=== PATIENT | female | born 1980 | race Caucasian/White ===

== ENCOUNTER 2017-07-08 13:56 | Emergency (ER) | payer OTHER ==
[~2017-07-08] VITALS: Ht 160 cm; Wt 158.8 kg
[2017-07-08 14:08] VITALS: BP 170/101
--- NOTE | 2017-07-08 14:13 | NUR ---
Patient ambulated to bed 02.
--- NOTE | 2017-07-08 14:20 | NUR ---
LAB at bedside.
[2017-07-08 14:40] LABS: BASOPHILS # (AUTO) 0.3 K/uL (0.00-0.22); EOSINOPHILS # (AUTO) 0.2 K/uL (0-0.4); HEMATOCRIT 34.1 % (36-48); HEMOGLOBIN 11.3 g/dL (12.0-16.0); LYMPHOCYTES # (AUTO) 3.6 K/uL (2.5-16.5); MEAN CORPUSCULAR HEMOGLOBIN 30 pg (27-31); MEAN CORPUSCULAR HGB CONC 33 g/dL (33-37); MEAN CORPUSCULAR VOLUME 89 fL (80-94); MONOCYTES # (AUTO) 0.9 K/uL (0.8-1.0); NEUTROPHILS # (AUTO) 8.1 K/uL (1.8-7.7); PLATELET COUNT (AUTO) 424 K/uL (140-450); RED BLOOD CELL COUNT(AUTO) 3.83 MIL/uL (4.20-5.40); RED CELL DISTRIBUTION WIDTH 13.1 % (11.6-13.7); WHITE BLOOD COUNT (AUTO) 13.1 K/uL (4.8-10.8)
[2017-07-08 14:48] LABS: ANION GAP 8.6 (8-16); CARBON DIOXIDE 30.1 mmol/L (21-32); CREATININE 0.7 mg/dL (0.6-1.3); POTASSIUM 3.7 mmol/L (3.5-5.1)
[2017-07-08] MEDS ORDERED: KETOROLAC 30 MG/ML VIAL IVP ONE (14:50)
--- NOTE | 2017-07-08 14:50 | NUR ---
US NOTIFIED. PT READY FOR PROCEDURE.
[2017-07-08 15:00] LABS: ALBUMIN 3.1 g/dL (3.4-5.0); TOTAL BILIRUBIN 0.3 mg/dL (0.0-1.0)
--- NOTE | 2017-07-08 15:14 | NUR ---
US NOTIFIED AGAIN, STS IT WILL BE ANOTHER 10MINS.
--- NOTE | 2017-07-08 15:24 | NUR ---
Patient taken to US via wheelchair per tech.
--- NOTE | 2017-07-08 15:47 | NUR ---
Patient back from US via wheelchair.
--- NOTE | 2017-07-08 16:31 | NUR ---
Dr. Taveras evaluating patient at bedside.
--- NOTE | 2017-07-08 16:49 | NUR ---
ORANGE SURVEY GIVEN TO PT.
[2017-07-08 16:58] VITALS: BP 101/50
--- NOTE | 2017-07-08 16:59 | NUR ---
Patient discharged with v/s stable. Written and verbal after care instructions given and explained. Patient alert, oriented and verbalized understanding of instructions. Ambulatory with steady gait. All questions addressed prior to discharge. ID band removed. Patient advised to follow up with PMD. Rx of NORCO 5-325 given. Patient educated on indication of medication including possible reaction and side effects. Opportunity to ask questions provided and answered.
== END 2017-07-08 16:58 | disposition home or self-care (01) ==
LOC: MED 13:56
DX: R10.30 Lower abdominal pain, unspecified (principal)
CPT/HCPCS: 36415; 76830; 80053; 81002; 81025; 83690; 85025; 96374; 99285; J1885

== ENCOUNTER 2017-07-09 16:49 | Emergency (ER) | payer OTHER ==
[~2017-07-09] VITALS: Ht 162.6 cm; Wt 158.8 kg
[2017-07-09 17:08] VITALS: BP 148/87
--- NOTE | 2017-07-09 17:10 | NUR ---
PATIENT PRESENTS TO ED WITH C/O VAGINAL BLEEDING AND CRAMPS . PT STATES SHE WAS SEEN BY HER DOCTOR TODAY AND WAS REFFERED TO HAVE A D&C . PATIENT STATES SHE HAS BEEN BLEEDING FOR 2 MONTHS BUT LATELY SHE HAS BEEN PASSING CLOTS. DENIES N/V/D; SKIN IS PINK/WARM/DRY; AAOX4 WITH EVEN AND STEADY GAIT; LUNGS CLEAR BL; HR EVEN AND REGULAR; PT DENIES ANY FEVER, CP, SOB, OR COUGH AT THIS TIME; PATIENT STATES PAIN OF 10/10 AT THIS TIME; VSS; PATIENT POSITIONED FOR COMFORT; HOB ELEVATED; BEDRAILS UP X2; BED DOWN. ER MD MADE AWARE OF PT STATUS.
--- NOTE | 2017-07-09 17:10 | NUR ---
Patient ambulated to bed 12.
[2017-07-09] MEDS ORDERED: NACL 0.9% 1,000 ML IV ONE (18:03)
[2017-07-09] MEDS ORDERED: MORPHINE SULFATE 4 MG/ML SYR IVP ONE (18:05)
[2017-07-09] MEDS ORDERED: ONDANSETRON 4 MG/2 ML VIAL IVP ONE (18:05)
[2017-07-09 18:35] LABS: BASOPHILS # (AUTO) 0.3 K/uL (0.00-0.22); BASOPHILS % (AUTO) 1.9 % (0.0-2.0); EOSINOPHILS # (AUTO) 0.1 K/uL (0-0.4); EOSINOPHILS % (AUTO) 0.9 % (0.0-4.0); HEMATOCRIT 34.5 % (36-48); HEMOGLOBIN 11.4 g/dL (12.0-16.0); LYMPHOCYTES # (AUTO) 3.6 K/uL (2.5-16.5); LYMPHOCYTES % (AUTO) 23.8 % (20.5-51.1); MEAN CORPUSCULAR HEMOGLOBIN 29 pg (27-31); MEAN CORPUSCULAR HGB CONC 33 g/dL (33-37); MEAN CORPUSCULAR VOLUME 89 fL (80-94); MONOCYTES # (AUTO) 0.6 K/uL (0.8-1.0); MONOCYTES % (AUTO) 4.2 % (1.7-9.3); NEUTROPHILS # (AUTO) 10.7 K/uL (1.8-7.7); NEUTROPHILS % (AUTO) 69.2 % (42.2-75.2); PLATELET COUNT (AUTO) 399 K/uL (140-450); RED CELL DISTRIBUTION WIDTH 13.3 % (11.6-13.7); WHITE BLOOD COUNT (AUTO) 15.3 K/uL (4.8-10.8)
[2017-07-09 18:39] LABS: APPEARANCE,URINE TURBID (CLEAR); BILIRUBIN,URINE NEGATIVE (NEGATIVE); BLOOD, URINE 3+ (NEGATIVE); COLOR,URINE YELLOW (YELLOW); LEUKOCYTE ESTERASE ,URINE TRACE (NEGATIVE); NITRITE, URINE NEGATIVE (NEGATIVE); UGLUCOSE NEGATIVE (NEGATIVE)
[2017-07-09 18:57] LABS: RBC,URINE TOO NUMEROUS TO COUN /HPF (0-5)
[2017-07-09 19:00] LABS: ALBUMIN 3.3 g/dL (3.4-5.0); ANION GAP 7.9 (8-16); CARBON DIOXIDE 28.8 mmol/L (21-32); CREATININE 0.7 mg/dL (0.6-1.3); POTASSIUM 3.7 mmol/L (3.5-5.1); TOTAL BILIRUBIN 0.2 mg/dL (0.0-1.0)
--- NOTE | 2017-07-09 19:20 | NUR ---
GOT REPORT FROM ESME YOO. PT. RESTING IN BED, NO S/SX OF DISTRESS AT THIS TIME
--- NOTE | 2017-07-09 19:24 | NUR ---
Dr. Donahue evaluating patient at bedside.
--- NOTE | 2017-07-09 19:55 | NUR ---
Patient discharged with v/s stable. Written and verbal after care instructions given and explained. Patient alert, oriented and verbalized understanding of instructions. Ambulatory with steady gait. All questions addressed prior to discharge. ID band removed. Patient advised to follow up with PMD. Rx of PERCOCET 5MG/325MG Q4PRN given. Patient educated on indication of medication including possible reaction and side effects. Opportunity to ask questions provided and answered.
[2017-07-09 20:01] VITALS: BP 144/81
== END 2017-07-09 19:55 | disposition home or self-care (01) ==
LOC: MED 16:49
DX: N93.8 Other specified abnormal uterine and vaginal bleeding (principal); R03.0 Elevated blood-pressure reading, without diagnosis of hypertension
CPT/HCPCS: 36415; 74176; 80053; 81001; 81025; 83690; 85025; 87086; 96361; 96374; 96375; 99285; J2270; J2405; J7030

== ENCOUNTER 2017-09-15 05:57 | Day surgery (SDC) | payer OTHER ==
[~2017-09-15] VITALS: Ht 160 cm; Wt 157.4 kg
[2017-09-15] MEDS ORDERED: SYN.05 PO (07:07)
[2017-09-15] MEDS ORDERED: KETOROLAC 30 MG/ML VIAL ONE (07:31)
[2017-09-15] MEDS ORDERED: DEXAMETHASONE 4 MG/ML VIAL ONE (07:31)
[2017-09-15] MEDS ORDERED: SEVOFLURANE 250 ML BTL INH ONE (07:31)
[2017-09-15] MEDS ORDERED: ONDANSETRON 4 MG/2 ML VIAL ONE (07:31)
[2017-09-15] MEDS ORDERED: PROPOFOL 200 MG/20 ML VIAL IV ONE (07:31)
[2017-09-15] MEDS ORDERED: fentaNYL 0.05 MG/ML VIAL ONE (07:34)
[2017-09-15] MEDS ORDERED: IBUPROFEN 800 MG TAB PO PRN (07:45)
[2017-09-15] MEDS ORDERED: ACETAMINOPHEN/CODEINE 300/30MG 1 TAB PO PRN (07:45)
[2017-09-15] MEDS ORDERED: ONDANSETRON 4 MG/2 ML VIAL IVP PRN (07:45)
[2017-09-15] MEDS ORDERED: MORPHINE SULFATE 4 MG/ML SYR IM/IVP PRN (07:45)
== END 2017-09-15 09:10 | disposition home or self-care (01) ==
LOC: MDS 05:57 → MMU 05:58 → MDS 09:10
PROVIDERS: ATTEND Obstetrics & Gynecology
DX: N92.1 Excessive and frequent menstruation with irregular cycle (principal); E03.9 Hypothyroidism, unspecified
CPT/HCPCS: 58120; J7120; J1100; J1885; J2405; J2704; J3010

== ENCOUNTER 2018-06-09 12:23 | Emergency (ER) | payer OTHER ==
[~2018-06-09] VITALS: Ht 160 cm; Wt 158.3 kg
[~2018-06-09 12:23] MED LIST: SYN.05 PO
[2018-06-09 12:31] VITALS: BP 163/93
--- NOTE | 2018-06-09 12:35 | NUR ---
PT AMBULATES TO BED 11
--- NOTE | 2018-06-09 12:45 | NUR ---
PT with c/o intermittent vaginal bleeding (ongoing since Apr) with clots with pelvic pain. Patient denies any vaginal discharge, recent fevers, or n/v/d. VSS; PATIENT POSITIONED FOR COMFORT; HOB ELEVATED; BEDRAILS UP X1; BED DOWN. ER MD MADE AWARE OF PT STATUS.
--- NOTE | 2018-06-09 14:30 | NUR ---
Patient appears to be resting comfortably in bed. Vital Signs within normal limits. Respirations even and unlabored.
[2018-06-09 14:40] LABS: BASOPHILS # (AUTO) 0.2 K/uL (0.00-0.22); BASOPHILS % (AUTO) 1.2 % (0.0-2.0); EOSINOPHILS # (AUTO) 0.2 K/uL (0-0.4); EOSINOPHILS % (AUTO) 1.3 % (0.0-4.0); HEMATOCRIT 31.7 % (36-48); HEMOGLOBIN 9.9 g/dL (12.0-16.0); LYMPHOCYTES # (AUTO) 3.5 K/uL (2.5-16.5); LYMPHOCYTES % (AUTO) 25.7 % (20.5-51.1); MEAN CORPUSCULAR HEMOGLOBIN 26 pg (27-31); MEAN CORPUSCULAR HGB CONC 31 g/dL (33-37); MEAN CORPUSCULAR VOLUME 82.8 fL (80-94); MONOCYTES % (AUTO) 7.1 % (1.7-9.3); NEUTROPHILS # (AUTO) 8.7 K/uL (1.8-7.7); NEUTROPHILS % (AUTO) 64.7 % (42.2-75.2); PLATELET COUNT (AUTO) 417 K/uL (140-450); RED BLOOD CELL COUNT(AUTO) 3.83 MIL/uL (4.20-5.40); RED CELL DISTRIBUTION WIDTH 16.3 % (11.6-13.7); WHITE BLOOD COUNT (AUTO) 13.4 K/uL (4.8-10.8)
[2018-06-09 16:52] VITALS: BP 163/93
== END 2018-06-09 16:54 | disposition home or self-care (01) ==
LOC: MED 12:23
DX: N93.8 Other specified abnormal uterine and vaginal bleeding (principal); Z79.899 Other long term (current) drug therapy
CPT/HCPCS: 36415; 76856; 81002; 81025; 85025; 99285; Q0092

== ENCOUNTER 2018-06-12 14:41 | Emergency (ER) | payer OTHER ==
[~2018-06-12] VITALS: Ht 162.6 cm; Wt 158.3 kg
[2018-06-12 15:06] VITALS: BP 110/59
[2018-06-12 19:33] LABS: BASOPHILS # (AUTO) 0.1 K/uL (0.00-0.22); BASOPHILS % (AUTO) 0.8 % (0.0-2.0); EOSINOPHILS # (AUTO) 0.2 K/uL (0-0.4); EOSINOPHILS % (AUTO) 1.1 % (0.0-4.0); HEMATOCRIT 32.4 % (36-48); HEMOGLOBIN 10.2 g/dL (12.0-16.0); LYMPHOCYTES # (AUTO) 3.2 K/uL (2.5-16.5); LYMPHOCYTES % (AUTO) 18.5 % (20.5-51.1); MEAN CORPUSCULAR HEMOGLOBIN 26 pg (27-31); MEAN CORPUSCULAR HGB CONC 31 g/dL (33-37); MEAN CORPUSCULAR VOLUME 82.6 fL (80-94); MONOCYTES % (AUTO) 5.5 % (1.7-9.3); NEUTROPHILS # (AUTO) 12.9 K/uL (1.8-7.7); NEUTROPHILS % (AUTO) 74.1 % (42.2-75.2); PLATELET COUNT (AUTO) 489 K/uL (140-450); RED BLOOD CELL COUNT(AUTO) 3.93 MIL/uL (4.20-5.40); RED CELL DISTRIBUTION WIDTH 15.8 % (11.6-13.7); WHITE BLOOD COUNT (AUTO) 17.4 K/uL (4.8-10.8)
[2018-06-12 19:42] LABS: ANION GAP 11.8 (8-16); CARBON DIOXIDE 28.8 mmol/L (21-32); CREATININE 0.7 mg/dL (0.6-1.3); POTASSIUM 3.6 mmol/L (3.5-5.1)
[2018-06-12 19:48] LABS: ALBUMIN 3.2 g/dL (3.4-5.0); TOTAL BILIRUBIN 0.1 mg/dL (0.0-1.0)
[2018-06-12] MEDS: NACL 0.9% 1,000 ML IV SCH (20:14)
[2018-06-12] MEDS: KETOROLAC 30 MG/ML VIAL IVP ONE (20:18)
[2018-06-12] MEDS: MORPHINE SULFATE 4 MG/ML SYR IVP ONE (20:20)
[2018-06-12] MEDS: ONDANSETRON 4 MG/2 ML VIAL IVP ONE (20:21)
[2018-06-12 22:01] LABS: APPEARANCE,URINE CLEAR (CLEAR); BILIRUBIN,URINE NEGATIVE (NEGATIVE); BLOOD, URINE TRACE (NEGATIVE); COLOR,URINE YELLOW (YELLOW); LEUKOCYTE ESTERASE ,URINE NEGATIVE (NEGATIVE); NITRITE, URINE NEGATIVE (NEGATIVE); UGLUCOSE NEGATIVE (NEGATIVE)
[2018-06-12 22:07] LABS: RBC,URINE 3-10 (FEW) /HPF (0-5); WBC,URINE 0-5 (RARE) /HPF (0-5)
[2018-06-13 00:20] VITALS: BP 141/85
== END 2018-06-13 00:20 | disposition home or self-care (01) ==
LOC: MED 14:41
DX: D25.9 Leiomyoma of uterus, unspecified (principal); Z79.899 Other long term (current) drug therapy
CPT/HCPCS: 36415; 74177; 80053; 81001; 82150; 83690; 84703; 85025; 96374; 96375; 99285; C1758; J1885; J2270; J2405; J7030; Q9967

== ENCOUNTER 2019-03-26 13:13 | Emergency (ER) | payer MEDICAID, OTHER ==
[~2019-03-26] VITALS: Ht 170.2 cm; Wt 145.1 kg
--- NOTE | 2019-03-26 13:27 | NUR ---
Note undone in EDM - 03/26/19 at 1348 by MED BIB FRIEND. AAO X4 C/O SUDDEN ONSET OF EPIGASTRIC ANGE PAIN, NON RADIATING WITH NAUSEA, SOB X 20 MINS AGO. PT DENIES FEVER, VOMITING, DIARRHEA, ACID REFLUX. LAST FOOD TAKEN THIS MORNING. ER TO EVALUATE PT.
--- NOTE | 2019-03-26 13:27 | NUR ---
BIB COUSIN. AAO X4 C/O SUDDEN ONSET OF EPIGASTRIC ANGE PAIN, NON RADIATING WITH NAUSEA, SOB X 20 MINS AGO. PT DENIES FEVER, VOMITING, DIARRHEA, ACID REFLUX. LAST FOOD TAKEN THIS MORNING. ER TO EVALUATE PT.
--- NOTE | 2019-03-26 13:27 | NUR ---
PT AMBULATED TO BED 03.
[2019-03-26 13:30] VITALS: BP 143/91
--- NOTE | 2019-03-26 14:14 | NUR ---
DR DUNNE AT BEDSIDE FOR PT EVALUATION
[2019-03-26] MEDS ORDERED: ONDANSETRON 4 MG ODT PO ONE (14:15)
[2019-03-26] MEDS ORDERED: KETOROLAC 60 MG/2 ML VIAL IM ONE (14:15)
[2019-03-26] MEDS ORDERED: FAMOTIDINE 20 MG TAB PO ONE (14:15)
--- NOTE | 2019-03-26 14:40 | NUR ---
PT LAYING DOWN. AAO X4. EVEN AND UNLABORED BREATHING. NO SIGNS AND SYMPTOMS OF DISTRESS NOTED.
[2019-03-26 14:42] LABS: BASOPHILS # (AUTO) 0.1 K/uL (0.00-0.22); BASOPHILS % (AUTO) 0.6 % (0.0-2.0); EOSINOPHILS # (AUTO) 0.1 K/uL (0-0.4); HEMATOCRIT 33.1 % (36-48); HEMOGLOBIN 10.4 g/dL (12.0-16.0); LYMPHOCYTES # (AUTO) 2.2 K/uL (2.5-16.5); LYMPHOCYTES % (AUTO) 21.6 % (20.5-51.1); MEAN CORPUSCULAR HEMOGLOBIN 24 pg (27-31); MEAN CORPUSCULAR HGB CONC 32 g/dL (33-37); MEAN CORPUSCULAR VOLUME 75.3 fL (80-94); MONOCYTES # (AUTO) 0.6 K/uL (0.8-1.0); MONOCYTES % (AUTO) 6.2 % (1.7-9.3); NEUTROPHILS # (AUTO) 7.1 K/uL (1.8-7.7); NEUTROPHILS % (AUTO) 70.6 % (42.2-75.2); PLATELET COUNT (AUTO) 429 K/uL (140-450); RED BLOOD CELL COUNT(AUTO) 4.39 MIL/uL (4.20-5.40); RED CELL DISTRIBUTION WIDTH 20.2 % (11.6-13.7)
[2019-03-26 15:06] LABS: ANION GAP 11.5 (8-16); CARBON DIOXIDE 30.4 mmol/L (21-32); CREATININE 0.8 mg/dL (0.6-1.3); POTASSIUM 3.9 mmol/L (3.5-5.1); TOTAL BILIRUBIN 0.3 mg/dL (0.0-1.0)
--- NOTE | 2019-03-26 16:00 | NUR ---
DR DUNNE AT BEDSIDE FOR PT RE EVALUATION
--- NOTE | 2019-03-26 16:02 | NUR ---
PT SITTING UP. AAO X4. PT DENIES ANY PAIN. EVEN AND UNLABORED BREATHING NOTED. WILL CONTINUE TO MONITOR.
[2019-03-26 16:15] VITALS: BP 138/78
--- NOTE | 2019-03-26 16:15 | NUR ---
Patient discharged with v/s stable. Written and verbal after care instructions given and explained. Patient alert, oriented and verbalized understanding of instructions. Ambulatory with steady gait. All questions addressed prior to discharge. ID band removed. Patient advised to follow up with PMD. Rx of ZOFRAN ODT, PEPCID, NORCO 5MG-325 MG given. Patient educated on indication of medication including possible reaction and side effects. Opportunity to ask questions provided and answered.
== END 2019-03-26 16:15 | disposition home or self-care (01) ==
LOC: MED 13:13
DX: K80.20 Calculus of gallbladder without cholecystitis without obstruction (principal); Z79.899 Other long term (current) drug therapy; Z86.39 Personal history of other endocrine, nutritional and metabolic disease
CPT/HCPCS: 36415; 80053; 81002; 81025; 83690; 85025; 96372; 99283; J1885; Q0162

== ENCOUNTER 2019-07-04 20:39 | Emergency (ER) | payer MEDICAID ==
[~2019-07-04] VITALS: Ht 162.6 cm; Wt 95.3 kg
[2019-07-04 20:49] VITALS: BP 120/89
--- NOTE | 2019-07-04 21:01 | NUR ---
38 Y/O F PRESENTS TO THE ED W/C/O L SIDED FACIAL PAIN AND L SIDED ARM PAIN SINCE WEDNESDAY. PT WAS RECENTLY PERSCRIBED LISINPOPRIL ON WEDNESDAY AND HAS TAKEN IT TWICE. +FACIAL SYMMETRY NOTED. PT DENIES CHEST PAIN. PT DENIES SOB. +EQULA HR RECRUITER STRENGHT. +CMS. GCS 15. PT DENIES N/V/D; SKIN IS INTACT, PINK/WARM/DRY; BREATHING UNLABORED; HR EVEN AND REGULAR, BL PERIPHERAL PULSES PRESENT; PT STATES 8/10 PAIN AT THIS TIME IN LEFT ARM; VSS; PATIENT POSITIONED FOR COMFORT; HOB ELEVATED; BEDRAILS UP X2; BED DOWN.
[2019-07-04 21:38] VITALS: BP 120/89
--- NOTE | 2019-07-04 21:38 | NUR ---
Patient discharged with v/s stable. Written and verbal after care instructions given and explained. Patient alert, oriented and verbalized understanding of instructions. Ambulatory with steady gait. All questions addressed prior to discharge. ID band removed. Patient advised to follow up with PMD. Rx of IBURPROFEN given. Patient educated on indication of medication including possible reaction and side effects. Opportunity to ask questions provided and answered.
== END 2019-07-04 21:38 | disposition home or self-care (01) ==
LOC: MED 20:39
DX: M79.602 Pain in left arm (principal); E03.9 Hypothyroidism, unspecified; Z79.899 Other long term (current) drug therapy
CPT/HCPCS: 99282

== ENCOUNTER 2019-09-19 16:54 | Emergency (ER) | payer MEDICAID, OTHER ==
[~2019-09-19] VITALS: Ht 162.6 cm; Wt 165.1 kg
[2019-09-19 17:08] VITALS: BP 159/86
--- NOTE | 2019-09-19 17:31 | NUR ---
C/O LEFT FLANK PAIN X YESTERDAY---DENIES INJURY
[2019-09-19 18:35] VITALS: BP 154/88
--- NOTE | 2019-09-19 18:36 | NUR ---
Patient discharged with v/s stable. Written and verbal after care instructions given and explained. Patient alert, oriented and verbalized understanding of instructions. Ambulatory with steady gait. All questions addressed prior to discharge. ID band removed. Patient advised to follow up with PMD. Rx of NAPROSYN, PROMETHAZINE given. Patient educated on indication of medication including possible reaction and side effects. Opportunity to ask questions provided and answered.
== END 2019-09-19 18:36 | disposition home or self-care (01) ==
LOC: MED 16:54
DX: S39.012A Strain of muscle, fascia and tendon of lower back, initial encounter (principal); J06.9 Acute upper respiratory infection, unspecified; E07.9 Disorder of thyroid, unspecified; Z79.899 Other long term (current) drug therapy; X58.XXXA Exposure to other specified factors, initial encounter; Y93.89 Activity, other specified; Y92.89 Other specified places as the place of occurrence of the external cause; Y99.8 Other external cause status
CPT/HCPCS: 81002; 81025; 99283

== ENCOUNTER 2020-05-15 03:54 | Emergency (ER) | payer OTHER ==
[~2020-05-15] VITALS: Ht 162.6 cm; Wt 160.1 kg
[2020-05-15 04:00] VITALS: BP 160/80
--- NOTE | 2020-05-15 04:06 | NUR ---
AMBULATED TO ER BED 4
--- NOTE | 2020-05-15 04:15 | NUR ---
PT STATES SHE WOKE UP THIS MORNING WITH C/O SEVERE PAIN TO RIGHT SIDE, ACHING TYPE PAIN 05/18. DENIES N/V/D. PT HAS HX OF GALLSTONES. AFEBRILE. NO PAIN WITH URINATION. AREA TENDER UPON PALPATION. LAST BM YESTERDAY, NORAML SOFT STOOL. PT SITTING IN CHAIR NEXT TO BED, STATES TOO PAINFUL TO LAY DOWN. NKA HX - DM, GALLSTONES
--- NOTE | 2020-05-15 04:19 | NUR ---
PT AMBULATED TO RESTROOM TO PROVIDE UA
[2020-05-15] MEDS: NACL 0.9% 1,000 ML IV ONE (04:32)
[2020-05-15] MEDS: MORPHINE SULFATE 4 MG/ML SYR IVP ONE ×2 (04:33→05:26)
[2020-05-15] MEDS: ONDANSETRON 4 MG/2 ML VIAL IVP ONE (04:33)
--- NOTE | 2020-05-15 04:43 | NUR ---
LABS AND URINE COLLECTED AND TAKEN TO LAB.
--- NOTE | 2020-05-15 04:44 | NUR ---
ULTRASOUND AT BEDSIDE
[2020-05-15 04:53] LABS: BASOPHILS # (AUTO) 0.1 K/uL (0.00-0.22); BASOPHILS % (AUTO) 0.9 % (0.0-2.0); HEMOGLOBIN 7.5 g/dL (12.0-16.0); MEAN CORPUSCULAR HGB CONC 29 g/dL (33-37); MONOCYTES # (AUTO) 0.8 K/uL (0.8-1.0)
[2020-05-15 04:57] LABS: EOSINOPHILS # (AUTO) 0.2 K/uL (0-0.4); EOSINOPHILS % (AUTO) 2.4 % (0.0-4.0); HEMATOCRIT 25.8 % (36-48); LYMPHOCYTES # (AUTO) 3.1 K/uL (2.5-16.5); LYMPHOCYTES % (AUTO) 33.1 % (20.5-51.1); MEAN CORPUSCULAR HEMOGLOBIN 18 pg (27-31); MEAN CORPUSCULAR VOLUME 62.2 fL (80-94); MONOCYTES % (AUTO) 8.8 % (1.7-9.3); NEUTROPHILS # (AUTO) 5.2 K/uL (1.8-7.7); NEUTROPHILS % (AUTO) 54.8 % (42.2-75.2); PLATELET COUNT (AUTO) 604 K/uL (140-450); RED BLOOD CELL COUNT(AUTO) 4.14 MIL/uL (4.20-5.40); WHITE BLOOD COUNT (AUTO) 9.5 K/uL (4.8-10.8)
[2020-05-15 05:02] LABS: APPEARANCE,URINE SL CLOUDY (CLEAR); BILIRUBIN,URINE NEGATIVE (NEGATIVE); BLOOD, URINE 3+ (NEGATIVE); COLOR,URINE AMBER (YELLOW); LEUKOCYTE ESTERASE ,URINE 1+ (NEGATIVE); NITRITE, URINE NEGATIVE (NEGATIVE); PH,URINE 6.5 (5.0-9.0); UGLUCOSE NEGATIVE (NEGATIVE)
[2020-05-15 05:07] LABS: ALBUMIN 3.3 g/dL (3.4-5.0); ANION GAP 12.5 (8-16); CREATININE 0.8 mg/dL (0.6-1.3); POTASSIUM 3.5 mmol/L (3.5-5.1); TOTAL BILIRUBIN 0.2 mg/dL (0.0-1.0)
--- NOTE | 2020-05-15 05:10 | NUR ---
PT STILL HAVING RIGHT SIDE PAIN 03/18, MD KHALIL AWARE
[2020-05-15 05:20] LABS: RBC,URINE 20-50 /HPF (0-5)
[2020-05-15] MEDS ORDERED: fentaNYL citrate 0.05 MG/ML VIAL IVP ONE (05:20)
--- NOTE | 2020-05-15 05:53 | NUR ---
PT RESTING IN BED, PAIN MUCH BETTER, 3/10.
[2020-05-15 07:20] VITALS: BP 140/78
--- NOTE | 2020-05-15 07:20 | NUR ---
Patient discharged with v/s stable. Written and verbal after care instructions given and explained. Patient alert, oriented and verbalized understanding of instructions. Ambulatory with steady gait. All questions addressed prior to discharge. ID band removed. Patient advised to follow up with PMD. Rx of bentyl given. Patient educated on indication of medication including possible reaction and side effects. Opportunity to ask questions provided and answered.
== END 2020-05-15 07:20 | disposition home or self-care (01) ==
LOC: MED 03:54
DX: K80.20 Calculus of gallbladder without cholecystitis without obstruction (principal); D50.9 Iron deficiency anemia, unspecified; N39.0 Urinary tract infection, site not specified; E11.9 Type 2 diabetes mellitus without complications; E07.9 Disorder of thyroid, unspecified; Z79.899 Other long term (current) drug therapy
CPT/HCPCS: 36415; 76705; 80053; 81001; 81025; 84702; 85025; 87086; 96361; 96374; 96375; 96376; 99284; J2270; J2405; J7030; Q0092

== ENCOUNTER 2020-08-26 13:22 | Emergency (ER) | payer OTHER ==
[~2020-08-26] VITALS: Ht 160 cm; Wt 157.4 kg
[2020-08-26 13:32] VITALS: BP 154/71
--- NOTE | 2020-08-26 13:37 | NUR ---
40 YO F C/O LEFT FLANK PAIN 1 WEEK. DENIES ANY TRAUMA OR INJURY TO AREA. DENIES URINARY SYMPTOMS. IN ED, VSS. PT ABLE TO AMBULATE. ERMD MADE AWARE OF PT STATUS. LMP: 08/26/20 PMH: PRE-DM, GALLSTONES NKA
[2020-08-26] MEDS ORDERED: KETOROLAC 30 MG/ML VIAL IM ONE (16:05)
--- NOTE | 2020-08-26 16:15 | NUR ---
Patient discharged with v/s stable. Written and verbal after care instructions given and explained. Patient alert, oriented and verbalized understanding of instructions. Ambulatory with steady gait. All questions addressed prior to discharge. ID band removed. Patient advised to follow up with PMD. Rx of KEFLEX, MINERAL OIL, DOCUSATE, MIRALAX given. Patient educated on indication of medication including possible reaction and side effects. Opportunity to ask questions provided and answered.
[2020-08-26 16:21] VITALS: BP 154/71
== END 2020-08-26 16:15 | disposition home or self-care (01) ==
LOC: MED 13:22
DX: N12 Tubulo-interstitial nephritis, not specified as acute or chronic (principal); K80.20 Calculus of gallbladder without cholecystitis without obstruction; K59.00 Constipation, unspecified; E66.9 Obesity, unspecified; Z68.44 Body mass index [BMI] 60.0-69.9, adult; E11.9 Type 2 diabetes mellitus without complications; E07.89 Other specified disorders of thyroid; Z79.899 Other long term (current) drug therapy
CPT/HCPCS: 74022; 81002; 81025; 96372; 99283; J1885

== ENCOUNTER 2022-04-06 18:03 | Emergency (ER) | payer OTHER ==
[~2022-04-06] VITALS: Ht 160 cm; Wt 81.6 kg
[2022-04-06 18:30] VITALS: BP 127/85
[2022-04-06] MEDS ORDERED: KETOROLAC 30 MG/ML VIAL IVP ONE (20:00)
--- NOTE | 2022-04-06 20:20 | NUR ---
PT TAKEN TO BED 4
--- NOTE | 2022-04-06 20:30 | NUR ---
Er physician verbally informed patient stated patient "had gastric bypass and cannot take motrin."
[2022-04-06 20:39] LABS: BASOPHILS # (AUTO) 0.1 K/uL (0.00-0.22); BASOPHILS % (AUTO) 1.2 % (0.0-2.0); EOSINOPHILS # (AUTO) 0.1 K/uL (0-0.4); EOSINOPHILS % (AUTO) 2.1 % (0.0-4.0); HEMATOCRIT 34.5 % (36-48); HEMOGLOBIN 11.3 g/dL (12.0-16.0); LYMPHOCYTES % (AUTO) 48.3 % (20.5-51.1); MEAN CORPUSCULAR HEMOGLOBIN 28 pg (27-31); MEAN CORPUSCULAR HGB CONC 33 g/dL (33-37); MEAN CORPUSCULAR VOLUME 84.8 fL (80-94); MONOCYTES # (AUTO) 0.4 K/uL (0.8-1.0); MONOCYTES % (AUTO) 6.4 % (1.7-9.3); NEUTROPHILS # (AUTO) 2.6 K/uL (1.8-7.7); PLATELET COUNT (AUTO) 270 K/uL (140-450); RED BLOOD CELL COUNT(AUTO) 4.06 MIL/uL (4.20-5.40); RED CELL DISTRIBUTION WIDTH 15.5 % (11.6-13.7); WHITE BLOOD COUNT (AUTO) 6.2 K/uL (4.8-10.8)
[2022-04-06] MEDS ORDERED: ONDANSETRON 4 MG/2 ML VIAL IVP ONE (20:40)
[2022-04-06] MEDS ORDERED: MORPHINE SULFATE 2 MG/ML SYR IVP ONE (20:40)
[2022-04-06] MEDS: NACL 0.9% 1,000 ML IV SCH ×2 (20:50→22:02)
[2022-04-06 21:25] LABS: ALBUMIN 3.7 g/dL (3.4-5.0); ANION GAP 15.5 (8-16); CARBON DIOXIDE 25.5 mmol/L (21-32); CREATININE 0.6 mg/dL (0.6-1.3); TOTAL BILIRUBIN 0.3 mg/dL (0.0-1.0)
--- NOTE | 2022-04-06 21:55 | NUR ---
PT TAKEN TO CT
--- NOTE | 2022-04-06 22:06 | NUR ---
PT RETURN FROM RADIOLOGY
[2022-04-06 23:38] VITALS: BP 111/72
--- NOTE | 2022-04-06 23:39 | NUR ---
Patient discharged with v/s stable. Written and verbal after care instructions given and explained. Patient verbalized understanding. Ambulatory with steady gait. All questions addressed prior to discharge. Advised to follow up with PMD.
== END 2022-04-06 23:39 | disposition home or self-care (01) ==
LOC: MED 18:03
DX: R10.9 Unspecified abdominal pain (principal); E11.9 Type 2 diabetes mellitus without complications; E07.9 Disorder of thyroid, unspecified; Z90.49 Acquired absence of other specified parts of digestive tract; Z79.899 Other long term (current) drug therapy; Z98.84 Bariatric surgery status
CPT/HCPCS: 36415; 74176; 80053; 84702; 85025; 96361; 96374; 96375; 99284; J2270; J2405; J7030

== ENCOUNTER 2023-01-15 08:08 | Emergency (ER) | payer OTHER ==
[~2023-01-15] VITALS: Ht 160 cm; Wt 83.9 kg
[2023-01-15 08:11] VITALS: BP 157/100
--- NOTE | 2023-01-15 08:33 | NUR ---
patient alert, oriented x4 presents to er c/o left arm pain after falling down the stairs, no hematoma, no erythema, stated unable to move arm d/t severe pain.
[2023-01-15] MEDS ORDERED: CYCLOBENZAPRINE 10 MG TAB PO ONE (08:35)
[2023-01-15] MEDS ORDERED: ACETAMINOPHEN EXTRA STRENGTH 500 MG TAB PO ONE (08:35)
--- NOTE | 2023-01-15 08:52 | NUR ---
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
[2023-01-15] MEDS ORDERED: NAPR-1871 PO (10:41)
[2023-01-15] MEDS ORDERED: EMLAC TP (10:41)
[2023-01-15] MEDS ORDERED: ACET-10509 PO (10:41)
[2023-01-15 10:50] VITALS: BP 130/80
--- NOTE | 2023-01-15 10:52 | NUR ---
patient condition stable d/c home with instructions after care reviewed understood left ER ambulatory with steady gait able to move left arm.
== END 2023-01-15 10:50 | disposition home or self-care (01) ==
LOC: MED 08:08
DX: S66.812A Strain of other specified muscles, fascia and tendons at wrist and hand level, left hand, initial encounter (principal); E11.9 Type 2 diabetes mellitus without complications; E03.9 Hypothyroidism, unspecified; Z79.899 Other long term (current) drug therapy; Z90.49 Acquired absence of other specified parts of digestive tract; W18.30XA Fall on same level, unspecified, initial encounter; Y93.89 Activity, other specified; Y92.89 Other specified places as the place of occurrence of the external cause; Y99.8 Other external cause status
CPT/HCPCS: 71045; 73060; 93005; 93971; 99284; Q0092

== ENCOUNTER 2023-07-15 15:39 | Emergency (ER) | payer OTHER ==
[~2023-07-15] VITALS: Ht 160 cm; Wt 88.0 kg
[~2023-07-15 15:39] MED LIST changes: +ACET-10509 PO; +EMLAC TP; +NAPR-1871 PO
[2023-07-15 15:49] VITALS: BP 121/77; PULSE 66; RESP 18; TEMP 98.7; O2SAT 99
[2023-07-15] MEDS ORDERED: NACL 0.9% 1,000 ML IV ONE (16:40)
[2023-07-15] MEDS ORDERED: KETOROLAC 30 MG/ML VIAL IVP ONE (16:40)
[2023-07-15] MEDS ORDERED: LIDOCAINE 5% 1 EA PATCH TP ONE (16:40)
[2023-07-15 16:56] LABS: APPEARANCE,URINE CLEAR (CLEAR); BILIRUBIN,URINE NEGATIVE (NEGATIVE); BLOOD, URINE NEGATIVE (NEGATIVE); COLOR,URINE YELLOW (YELLOW); LEUKOCYTE ESTERASE ,URINE NEGATIVE (NEGATIVE); NITRITE, URINE NEGATIVE (NEGATIVE); PROTEIN,URINE NEGATIVE (NEGATIVE); UGLUCOSE NEGATIVE (NEGATIVE); UROBILINOGEN,URINE 0.2 EU/dL (0.2 - 1)
[2023-07-15 17:08] LABS: BASOPHILS # (AUTO) 0.1 K/uL (0.00-0.22); BASOPHILS % (AUTO) 0.9 % (0.0-2.0); EOSINOPHILS # (AUTO) 0.1 K/uL (0-0.4); EOSINOPHILS % (AUTO) 1.4 % (0.0-4.0); HEMATOCRIT 35.7 % (36-48); HEMOGLOBIN 11.8 g/dL (12.0-16.0); LYMPHOCYTES # (AUTO) 2.6 K/uL (2.5-16.5); LYMPHOCYTES % (AUTO) 45.1 % (20.5-51.1); MEAN CORPUSCULAR HEMOGLOBIN 29 pg (27-31); MEAN CORPUSCULAR HGB CONC 33 g/dL (33-37); MONOCYTES # (AUTO) 0.4 K/uL (0.8-1.0); MONOCYTES % (AUTO) 7.1 % (1.7-9.3); NEUTROPHILS # (AUTO) 2.7 K/uL (1.8-7.7); NEUTROPHILS % (AUTO) 45.5 % (42.2-75.2); PLATELET COUNT (AUTO) 264 K/uL (140-450); RED BLOOD CELL COUNT(AUTO) 4.06 MIL/uL (4.20-5.40); WHITE BLOOD COUNT (AUTO) 5.9 K/uL (4.8-10.8)
[2023-07-15 17:43] LABS: LACTIC ACID 0.8 mmol/L (0.4-2.0)
[2023-07-15 17:46] LABS: ANION GAP 8.8 (8-16); CALCIUM 8.4 mg/dL (8.5-10.1); CARBON DIOXIDE 29.9 mmol/L (21-32); CREATININE 0.5 mg/dL (0.6-1.3); POTASSIUM 3.7 mmol/L (3.5-5.1)
[2023-07-15] MEDS ORDERED: LID5T TP (18:27)
[2023-07-15] MEDS ORDERED: ACET-10509 PO (18:27)
[2023-07-15] MEDS ORDERED: NAPR-1704 PO (18:27)
[2023-07-15 18:47] VITALS: BP 127/71; PULSE 71; RESP 14; TEMP 97.9; O2SAT 99
== END 2023-07-15 18:47 | disposition home or self-care (01) ==
LOC: MED 15:39
DX: S39.011A Strain of muscle, fascia and tendon of abdomen, initial encounter (principal); E11.9 Type 2 diabetes mellitus without complications; Z86.39 Personal history of other endocrine, nutritional and metabolic disease; Z98.890 Other specified postprocedural states; Z79.899 Other long term (current) drug therapy; Z79.1 Long term (current) use of non-steroidal anti-inflammatories (NSAID); X58.XXXA Exposure to other specified factors, initial encounter; Y92.89 Other specified places as the place of occurrence of the external cause; Y93.89 Activity, other specified; Y99.8 Other external cause status
CPT/HCPCS: 36415; 74176; 80048; 81003; 81025; 83605; 83690; 85025; 87040; 96361; 96374; 99285; J1885; J7030